=== PATIENT | male | born 1990 | race Caucasian/White ===

== ENCOUNTER → 2016-10-25 | Outpatient (CLI) | payer OTHER ==
--- NOTE | 2016-10-25 09:41 | RAD ---
René Pires 10/25/2018 Time of exam 0919 hours. Indication: Constipation. No free air is identified. The bowel gas pattern is nonobstructed. No significant stool load is identified. No pathologic calcifications are seen. Impression: No acute feature detected.
== END | disposition home or self-care (01) ==
LOC: DXRAD 08:46
PROVIDERS: ATTEND Nurse Practitioner Family
DX: K59.09 Other constipation (principal)
CPT/HCPCS: 74020

== ENCOUNTER 2017-08-01 19:34 | Emergency (ER) | payer OTHER ==
[~2017-08-01] VITALS: Ht 185.4 cm; Wt 91.3 kg
[2017-08-01 20:55] LABS: INFLUENZA A PATIENT NEGATIVE (NEGATIVE); INFLUENZA B PATIENT NEGATIVE (NEGATIVE)
[2017-08-01] MEDS ORDERED: ONDA4TAB10 SL (21:09)
[2017-08-01] MEDS ORDERED: OSEL75CA PO (21:09)
--- NOTE | 2017-08-01 21:09 | PHYS DOC ---
Adult General Chief Complaint Chief Complaint: FLU SYMPTOM HPI HPI Patient is a 27 year old male who presents with complaint of vomiting. The patient states his symptoms started suddenly today. Patient states he has had over 6 episodes of vomiting since onset of symptoms. The patient went to urgent care today but was referred to the emergency department due to active vomiting. The patient denies any fevers, abdominal pain, sore throat, or cough. The patient's son was positive for influenza A which was checked yesterday at his son's visit. The patient's son did have one episode of vomiting though this was thought to be due to cough. Patient denies any significant past medical history. Patient has not taken any medications for his symptoms since onset. Review of Systems Review of Systems Constitutional: Generalized fatigue[] Eyes: Denies change in visual acuity, redness, or eye pain [] HENT: Denies nasal congestion or sore throat [] Respiratory: Denies cough or shortness of breath [] Cardiovascular: Denies chest pain or edema[] GI: Nausea, vomiting, denies abdominal pain, bloody stools or diarrhea [] : Denies dysuria or hematuria [] Musculoskeletal: Denies back pain or joint pain [] Integument: Denies rash or skin lesions [] Neurologic: Denies headache, focal weakness or sensory changes [] All other systems were reviewed and found to be within normal limits, except as documented in this note. Allergies Allergies No known drug allergies Physical Exam Physical Exam Constitutional: Alert, afebrile, no acute distress. [] HENT: Normocephalic, atraumatic, bilateral external ears normal, oropharynx moist, no oral exudates, nose normal. [] Eyes: PERRLA, EOMI, conjunctiva normal, no discharge. [] Neck: Normal range of motion, no tenderness, supple, no stridor. [] Cardiovascular:Heart rate regular rhythm, no murmur [] Lungs & Thorax: Bilateral breath sounds clear to auscultation [] Abdomen: Bowel sounds normal, soft, no tenderness, no masses, no pulsatile masses. [] Skin: Warm, dry, no erythema, no rash. [] Back: No tenderness, no CVA tenderness. [] Extremities: No tenderness, no cyanosis, no clubbing, ROM intact, no edema. [] Neurologic: Alert and oriented X 3, normal motor function, normal sensory function, no focal deficits noted. [] Current Patient Data Lab Results Laboratory Tests Test 08/01/17 19:46 Influenza Type A (Rapid) Negative (NEGATIVE) Influenza Type B (Rapid) Negative (NEGATIVE) EKG EKG Not performed[] Radiology/Procedures Radiology/Procedures Not performed[] Course & Med Decision Making Course & Med Decision Making Pertinent Labs and Imaging studies reviewed. (See chart for details) Influenza test was negative. However due to exposure, I did agree to prescribe patient Tamiflu. The patient was treated with Zofran for vomiting. Patient's symptoms appear consistent with acute GI virus infection. Advised to continue on Zofran and oral hydration at home with recommended follow-up in 2 days with primary doctor for reevaluation. Advised return emergency department for any worsening symptoms. Patient voiced understanding and in agreement with treatment plan. Dragon Disclaimer Dragon Disclaimer This electronic medical record was generated, in whole or in part, using a voice recognition dictation system. Departure Departure: Impression: Primary Impression: Nausea and vomiting Disposition: HOME, SELF-CARE Condition: IMPROVED Referrals: [facility] (PCP) Patient Instructions: Nausea and Vomiting Additional Instructions: Your influenza test was negative today. Follow-up with your primary doctor in 1- 2 days for reevaluation. Return to emergency department for any worsening symptoms. Scripts Ondansetron (ZOFRAN ODT) 4 Mg Tab.rapdis 1-2 TAB SL Q8HRS Y for NAUSEA/VOMITING, #15 TAB Prov: DEJAH PRADO MD 08/01/17 Oseltamivir Phosphate (TAMIFLU) 75 Mg Capsule 1 CAP PO BID, #10 CAP Prov: DEJAH PRADO MD 08/01/17 Problem Qualifiers Primary Impression: Nausea and vomiting Vomiting type: unspecified Vomiting Intractability: non-intractable Qualified Codes: R11.2 - Nausea with vomiting, unspecified DEJAH PRADO MD Aug 01, 2017 21:09
[2017-08-01] MEDS ORDERED: ONDANSETRON ODT 4 MG TAB.RAPDIS PO ONE (21:15)
[2017-08-01 21:20] VITALS: BP 136/78
== END 2017-08-01 21:16 | disposition home or self-care (01) ==
LOC: ER 19:34
DX: R11.2 Nausea with vomiting, unspecified (principal); R05 Cough; R53.83 Other fatigue
CPT/HCPCS: 87804; 99284; Q0162